=== PATIENT | male | born 1950 | race Caucasian/White ===

== ENCOUNTER 2020-06-04 23:29 | Emergency (ER) | payer MEDICARE, OTHER ==
[~2020-06-04] VITALS: Ht 177.8 cm; Wt 93.4 kg
[2020-06-05 00:22] LABS: BILIRUBIN,URINE NEGATIVE (NEGATIVE); CLARITY,URINE CLEAR; COLOR,URINE DARK YELLOW; GLUCOSE, URINE (UA) NEGATIVE (NEGATIVE); KETONES,URINE NEGATIVE (NEGATIVE); NITRITE,URINE POSITIVE (NEGATIVE); PROTEIN,URINE NEGATIVE (NEGATIVE)
[2020-06-05 00:23] LABS: LEUKOCYTE ESTERASE ,URINE NEGATIVE (NEGATIVE); RBC,URINE 0-2 /HPF; WBC,URINE 0-2 /HPF
[2020-06-05 00:35] VITALS: BP 156/64
--- NOTE | 2020-06-05 00:35 | ED General ---
General Chief Complaint: - Urinary Stated Complaint: URINARY PAIN Nursing Triage Note: Pt arrived by private vehicle with chief complaint of urinary retention. Pt arrived with two daughters. Pt was alert, oriented x 4 and ambulatory. Pt appeared to be in pain, so pt was assisted into a wheelchair and wheeled to room 6. Pt was assisted to the bed and vital signs were taken. Pt stated he had blankenship cath in and around 1800 his daughter took it out. It was in place for enlarged prostate and UTI, and bleeding was caused by UTI. They stated he had stopped bleeding two days ago, and he was in pain, so they took it out tonight. Since then he has had retention and has not urinated. Pt's abdomen was swollen and distended. Pt appeared to be in a lot of pain from retention. Bladder scanner showed >200 mls in bladder. Pt stated he was in [facility] for this, but traveled here, because was leaving him and he came to stay with daughter in . He was planning to see a urologist, but he needed a refural to see him, so he has appointment with John [facility] with [facility]. Pt has been taking cefainir 1 cap every 12 hours 300 mg for 7 days. He has taken 2 days worth. Pt also was prescribed pyridium and had one this morning. Due to retention, blankenship catheter insertion was ordered. 16 maltese coude catheter was inserted and ouotput was 1500 mls. Color of urine was orange/pink color. Nursing Sepsis Screen: Possible Severe Sepsis Risk Source of Information: Patient History of Present Illness Date Seen by Provider: Jun 04, 2020 Time Seen by Provider: 23:35 Initial Comments Patient is a 61-year-old male with history of urinary retention who presents with acute lower abdominal pain after having his Blankenship catheter removed proximally 6 hours prior to ED arrival. Patient was in the process of driving from [facility] to return to his home in [facility], patient had a Blankenship catheter placed which was subsequently removed by family member with medical training. Patient states he had had catheter placed due to prostate enlargement and urinary tract infection. He is scheduled to see a urologist tomorrow. Denies fever chills, nausea vomiting sweats. No flank pain. No other acute symptoms or complaints. Timing/Duration: 4-6 Hours Severity: Moderate Modifying Factors: improves with Other Associated Systoms: Other Allergies and Home Medications Patient Home Medication List Home Medication List Reviewed: Yes Review of Systems Review of Systems Constitutional: see HPI EENTM: see HPI Respiratory: see HPI Cardiovascular: see HPI Gastrointestinal: see HPI Genitourinary: see HPI Musculoskeletal: see HPI Skin: see HPI Psychiatric/Neurological: See HPI Hematologic/Lymphatic: See HPI Immunological/Allergic: see HPI All Other Systems Reviewed Negative Unless Noted: Yes Past Yweatvc-Icbnpa-Omblxn Hx Past Med/Social Hx: Reviewed Nursing Past Med/Soc Hx Patient Social History Alcohol Use: Occasionally Uses Alcohol Beverage of Choice: Beer Recreational Drug Use: No Smoking Status: Current Everyday Smoker 2nd Hand Smoke Exposure: Yes Recent Foreign Travel: No Contact w/Someone Who Travel: No Recent Infectious Disease Expo: No Recent Hopitalizations: No Physical Abuse: No Sexual Abuse: No Mistreated: No Fear: No Seasonal Allergies Seasonal Allergies: No Past Medical History Surgeries: Yes (2 hsoulder, cyst drainage) Coronary Stent Respiratory: Yes COPD, Emphysema Cardiac: Yes Peripheral Vascular Neurological: No Genitourinary: No Gastrointestinal: No Musculoskeletal: No Endocrine: No HEENT: No Cancer: No Psychosocial: Yes Depression Integumentary: No Blood Disorders: No Physical Exam Vital Signs Vital Signs - First Documented 06/04/20 23:32 Temp 35.6 Pulse 103 Resp 22 B/P (MAP) 177/74 (108) Pulse Ox 95 O2 Delivery Room Air Capillary Refill : Less Than 3 Seconds Height, Weight, BMI Height: '" Weight: lbs. oz. kg; 29.00 BMI Method: General Appearance: Mild Distress Eyes: Bilateral Eye Normal Inspection, Bilateral Eye PERRL, Bilateral Eye EOMI HEENT: PERRL/EOMI, Normal ENT Inspection, Pharynx Normal Neck: Full Range of Motion, Supple Respiratory: Lungs Clear Cardiovascular: Regular Rate, Rhythm Gastrointestinal: Soft, Other (supraprubic tenderness) Genital/Rectal: Normal Genital Exam Back: Normal Inspection, No CVA Tenderness Extremity: Normal Capillary Refill, Normal Inspection Neurologic/Psychiatric: Alert, Oriented x3 Skin: Damp Focused Exam Sepsis Stage: Ruled Out Progress/Results/Core Measures Suspected Sepsis Recent Fever Within 48 Hours: No Infection Criteria Present: Suspected New Infection New/Unexplained Altered Menta: No Sepsis Screen: Possible Severe Sepsis Risk SIRS Temperature: Pulse: 103 Respiratory Rate: 22 Blood Pressure 177 /74 Mean: 108 Results/Orders Lab Results Laboratory Tests Test 06/04/20 11:55 Range/Units Urine Color DARK YELLOW Urine Clarity CLEAR Urine pH 6.0 5-9 Urine Specific [place] <1.005 1.016-1.022 Urine Protein NEGATIVE NEGATIVE Urine Glucose (UA) NEGATIVE NEGATIVE Urine Ketones NEGATIVE NEGATIVE Urine Nitrite POSITIVE H NEGATIVE Urine Bilirubin NEGATIVE NEGATIVE Urine Urobilinogen 1.0 < = 1.0 MG/DL Urine Leukocyte Esterase NEGATIVE NEGATIVE Urine RBC (Auto) TRACE H NEGATIVE Urine RBC 0-2 /HPF Urine WBC 0-2 /HPF Urine Crystals NONE /LPF Urine Bacteria NONE /HPF Urine Casts NONE /LPF Urine Mucus NEGATIVE /LPF Urine Culture Indicated YES My Orders Orders - YANA GUZMÁN DO Ua Culture If Indicated (06/04/20 23:57) Catheter(Urinary) Insert & Ass 03,15 (06/04/20 23:57) Urine Culture (06/04/20 11:55) Vital Signs/I&O 06/04/20 06/05/20 23:32 00:35 Temp 35.6 36.1 Pulse 103 91 Resp 22 18 B/P (MAP) 177/74 (108) 156/64 Pulse Ox 95 96 O2 Delivery Room Air Room Air Capillary Refill : Less Than 3 Seconds Blood Pressure Mean: 108 Departure Communication (Admissions) Blankenship catheter placed with return of 1300 ml urine. Impression Primary Impression: Acute urinary retention Disposition: 01 HOME, SELF-CARE Condition: Stable Departure-Patient Inst. Referrals: DORITA WANG MD Add. Discharge Instructions: Please leave Blankenship catheter in place until he follow-up with urologist. Contact Dr. Wang's office and schedule a follow-up appointment in the next 2-7 days All discharge instructions reviewed with patient and/or family. Voiced understanding. YANA GUZMÁN DO Jun 05, 2020 00:35
--- NOTE | 2020-06-05 00:35 | NUR ---
Pt was given leg bag, urinal and blankenship adhesive philip for home. Daughter was informed about dc inst/ follow up. Pt was given home meds at dc.
== END 2020-06-05 00:53 | disposition home or self-care (01) ==
LOC: ER FS 23:37
DX: R33.9 Retention of urine, unspecified (principal); F17.200 Nicotine dependence, unspecified, uncomplicated
CPT/HCPCS: 51702; 81000; 87088